=== PATIENT | female | born 1990 | race African-American/Black ===

== ENCOUNTER 2016-07-15 22:28 | Emergency (ER) | payer OTHER ==
[~2016-07-15] VITALS: Ht 154.9 cm; Wt 77.1 kg
[~2016-07-15 22:28] MED LIST: ERYTHROMYCIN E3.5 G1 OPHTHALMIC; IBUPROFEN 800800 M1 PO; LEVSIN0.125 MG PO; LORTAB 10 MG-3473 ML PO; NORCO 5-325 TA1 EACH PO; PENICILLIN VK500 M1 PO; TRINATE TABLET1 TAB PO; ZOFRAN ODT4 MG PO; ZOFRAN4 MG PO
[2016-07-15] MEDS ORDERED: PREDNISONE 20 M20 MG PO (23:00)
[2016-07-15] MEDS ORDERED: ZANTAC 150MG T150 MG PO (23:15)
[2016-07-15 23:27] VITALS: BP 129/81
[2016-08-23] MEDS ORDERED: IBUPROFEN 800800 M1 PO (13:55)
[2016-08-23] MEDS ORDERED: GENTAMICIN SU3 MG/ML OPHTHALMIC (14:08)
[2016-08-31] MEDS ORDERED: ANUSOL-HC25 MG RECTAL (11:08)
== END 2016-07-15 23:28 | disposition home or self-care (01) ==
LOC: ER 22:28
DX: L50.8 Other urticaria (principal); R12 Heartburn; F17.210 Nicotine dependence, cigarettes, uncomplicated

== ENCOUNTER 2016-07-18 20:30 | Emergency (ER) | payer OTHER ==
[~2016-07-18] VITALS: Ht 154.9 cm; Wt 77.1 kg
[~2016-07-18 20:30] MED LIST changes: +PREDNISONE 20 M20 MG PO; +ZANTAC 150MG T150 MG PO
[2016-07-18] MEDS ORDERED: HYDROXYZINE HCL25 M2 PO (22:12)
[2016-07-18] MEDS ORDERED: ADRENACLIC0.3 MG/0.3 IM (22:12)
[2016-07-18 22:14] VITALS: BP 138/73
[2016-08-23] MEDS ORDERED: IBUPROFEN 800800 M1 PO (13:55)
[2016-08-23] MEDS ORDERED: GENTAMICIN SU3 MG/ML OPHTHALMIC (14:08)
[2016-08-31] MEDS ORDERED: ANUSOL-HC25 MG RECTAL (11:08)
== END 2016-07-18 22:15 | disposition home or self-care (01) ==
LOC: ER 20:30
DX: T78.2XXA Anaphylactic shock, unspecified, initial encounter (principal); F17.210 Nicotine dependence, cigarettes, uncomplicated; F10.99 Alcohol use, unspecified with unspecified alcohol-induced disorder

== ENCOUNTER 2017-03-12 00:11 | Emergency (ER) | payer OTHER ==
[~2017-03-12] VITALS: Ht 154.9 cm; Wt 77.1 kg
[~2017-03-12 00:11] MED LIST changes: +ADRENACLIC0.3 MG/0.3 IM; +ANUSOL-HC25 MG RECTAL; +GENTAMICIN SU3 MG/ML OPHTHALMIC; +HYDROXYZINE HCL25 M2 PO
[2017-03-12 00:24] VITALS: BP 147/100
[2017-03-12] MEDS ORDERED: KEFLEX500 MG PO (01:01)
== END 2017-03-12 01:08 | disposition home or self-care (01) ==
LOC: ER 00:11
DX: O9A.211 Injury, poisoning and certain other consequences of external causes complicating pregnancy, first trimester (principal); S01.312A Laceration without foreign body of left ear, initial encounter; F10.10 Alcohol abuse, uncomplicated; F17.210 Nicotine dependence, cigarettes, uncomplicated; Z91.018 Allergy to other foods; Z3A.00 Weeks of gestation of pregnancy not specified; W19.XXXA Unspecified fall, initial encounter; Y93.89 Activity, other specified; Y92.89 Other specified places as the place of occurrence of the external cause; Y99.8 Other external cause status

== ENCOUNTER 2017-07-31 01:01 | Emergency (ER) | payer BC, OTHER ==
[~2017-07-31] VITALS: Ht 154.9 cm; Wt 72.6 kg
--- NOTE | ~2017-07-31 | EKG ---
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
[~2017-07-31 01:01] MED LIST changes: +DOCUSATE S100 MG/10 PO; +KEFLEX500 MG PO
[2017-07-31] MEDS ORDERED: DEPO-ESTRAD5 MG/1 ML IM (01:14)
[2017-07-31] MEDS ORDERED: ULTRAM 50MG TAB50 MG PO (02:33)
[2017-07-31] MEDS ORDERED: NAPROSYN500 MG PO (02:33)
[2018-03-18] MEDS ORDERED: FLONASE 0.05%50 MCG NASAL (09:57)
[2018-03-18] MEDS ORDERED: NAPROSYN500 MG PO (09:57)
[2018-03-18] MEDS ORDERED: SUDOGEST30 MG PO (09:57)
[2018-03-18] MEDS ORDERED: TESSALON PERLE100 MG PO (09:57)
[2018-03-18] MEDS ORDERED: PHENERGAN 25 MG25 M1 PO (10:07)
== END 2017-07-31 02:53 | disposition home or self-care (01) ==
LOC: ER 01:01
DX: M94.0 Chondrocostal junction syndrome [Tietze] (principal); F10.99 Alcohol use, unspecified with unspecified alcohol-induced disorder; F17.210 Nicotine dependence, cigarettes, uncomplicated

== ENCOUNTER 2017-08-26 15:49 | Emergency (ER) | payer BC, OTHER ==
[~2017-08-26] VITALS: Ht 162.6 cm; Wt 59.0 kg
[~2017-08-26 15:49] MED LIST changes: +DEPO-ESTRAD5 MG/1 ML IM; +NAPROSYN500 MG PO; +ULTRAM 50MG TAB50 MG PO
[2017-08-26] MEDS ORDERED: DEPO-PROVE150 MG/11 IM (15:56)
[2018-03-18] MEDS ORDERED: TESSALON PERLE100 MG PO (09:57)
[2018-03-18] MEDS ORDERED: SUDOGEST30 MG PO (09:57)
[2018-03-18] MEDS ORDERED: NAPROSYN500 MG PO (09:57)
[2018-03-18] MEDS ORDERED: FLONASE 0.05%50 MCG NASAL (09:57)
[2018-03-18] MEDS ORDERED: PHENERGAN 25 MG25 M1 PO (10:07)
== END 2017-08-26 16:15 | disposition home or self-care (01) ==
LOC: ER 15:49
DX: Z20.2 Contact with and (suspected) exposure to infections with a predominantly sexual mode of transmission (principal); F17.210 Nicotine dependence, cigarettes, uncomplicated

== ENCOUNTER 2017-10-07 12:49 | Emergency (ER) | payer BC, OTHER ==
[~2017-10-07] VITALS: Ht 162.6 cm; Wt 68.0 kg
[~2017-10-07 12:49] MED LIST changes: +DEPO-PROVE150 MG/11 IM
[2017-10-07 13:07] VITALS: BP 126/85
[2017-10-07 13:17] LABS: URINE BILIRUBIN NEGATIVE (Negative); URINE BLOOD NEGATIVE (Negative); URINE CLARITY CLEAR; URINE COLOR YELLOW; URINE GLUCOSE-RANDOM* NEGATIVE (Negative); URINE KETONES NEGATIVE (Negative); URINE LEUKOCYTES-REFLEX NEGATIVE (Negative); URINE NITRITE-REFLEX NEGATIVE (Negative); URINE PROTEIN (DIPSTICK) NEGATIVE (Negative); URINE SPECIFIC GRAVITY 1.025 (1.005-1.035); URINE UROBILINOGEN 0.2 E.U./dl (0.2-1.0)
== END 2017-10-07 14:00 | disposition home or self-care (01) ==
LOC: ER 12:49
PROVIDERS: Physician Assistant
DX: N72 Inflammatory disease of cervix uteri (principal); F17.210 Nicotine dependence, cigarettes, uncomplicated

== ENCOUNTER 2017-12-14 16:28 | Emergency (ER) | payer OTHER ==
[~2017-12-14] VITALS: Ht 154.9 cm; Wt 77.1 kg
[2017-12-14] MEDS ORDERED: MOBIC7.5 MG PO (17:13)
[2017-12-14 17:36] VITALS: BP 110/76
== END 2017-12-14 17:37 | disposition home or self-care (01) ==
LOC: ER 16:28
DX: S83.92XA Sprain of unspecified site of left knee, initial encounter (principal); F17.210 Nicotine dependence, cigarettes, uncomplicated; W06.XXXA Fall from bed, initial encounter; Y93.89 Activity, other specified; Y92.89 Other specified places as the place of occurrence of the external cause; Y99.8 Other external cause status

== ENCOUNTER 2018-02-19 19:06 | Emergency (ER) | payer OTHER ==
[~2018-02-19] VITALS: Ht 154.9 cm; Wt 71.2 kg
[~2018-02-19 19:06] MED LIST changes: +MOBIC7.5 MG PO
[2018-02-19] MEDS ORDERED: IBUPROFEN 400400 M2 PO (19:13)
[2018-02-19] MEDS ORDERED: HYDROCODONE-AP1 EAC6 PO (19:59)
[2018-02-19 20:13] VITALS: BP 126/82
== END 2018-02-19 20:13 | disposition home or self-care (01) ==
LOC: ER 19:06
DX: S80.02XA Contusion of left knee, initial encounter (principal); F17.210 Nicotine dependence, cigarettes, uncomplicated; W01.0XXA Fall on same level from slipping, tripping and stumbling without subsequent striking against object, initial encounter; Y93.89 Activity, other specified; Y92.89 Other specified places as the place of occurrence of the external cause; Y99.8 Other external cause status

== ENCOUNTER 2018-06-14 14:01 | Emergency (ER) | payer OTHER ==
[~2018-06-14] VITALS: Ht 154.9 cm; Wt 75.8 kg
[~2018-06-14 14:01] MED LIST changes: +FLONASE 0.05%50 MCG NASAL; +HYDROCODONE-AP1 EAC6 PO; +IBUPROFEN 400400 M2 PO; +PHENERGAN 25 MG25 M1 PO; +SUDOGEST30 MG PO; +TESSALON PERLE100 MG PO
[2018-06-14] MEDS ORDERED: TESSALON PERLE100 MG PO (15:54)
[2018-06-14] MEDS ORDERED: MUCINEX DM ER1 EACH PO (15:54)
[2018-06-14 16:06] VITALS: BP 126/89
== END 2018-06-14 16:07 | disposition home or self-care (01) ==
LOC: ER 14:01
DX: J06.9 Acute upper respiratory infection, unspecified (principal); F17.210 Nicotine dependence, cigarettes, uncomplicated

== ENCOUNTER 2018-07-26 14:55 | Emergency (ER) | payer OTHER ==
[~2018-07-26] VITALS: Ht 154.9 cm; Wt 69.0 kg
[~2018-07-26 14:55] MED LIST changes: +MUCINEX DM ER1 EACH PO
[2018-07-26] MEDS ORDERED: VENTOLIN HFA 1818 GM INH (16:48)
[2018-07-26] MEDS ORDERED: DOXYCYCLINE 10100 MG PO (16:48)
[2018-07-26] MEDS ORDERED: PREDNISONE 10 M10 MG PO (16:48)
[2018-07-26 17:05] VITALS: BP 121/74
== END 2018-07-26 17:05 | disposition home or self-care (01) ==
LOC: ER 14:55
DX: R05 Cough (principal); F17.210 Nicotine dependence, cigarettes, uncomplicated

== ENCOUNTER 2021-04-28 15:13 | Emergency (ER) | payer OTHER ==
[~2021-04-28] VITALS: Ht 154.9 cm; Wt 73.9 kg
[~2021-04-28 15:13] MED LIST changes: +DOXYCYCLINE 10100 MG PO; +PREDNISONE 10 M10 MG PO; +VENTOLIN HFA 1818 GM INH
[2021-04-28 15:46] LABS: ABSOLUTE NEUTROPHILS 2.6 thou/uL (1.4-8.2); BASOPHILS 1.1 % (0.0-2.0); EOSINOPHILS 0.5 % (0.0-3.0); HEMATOCRIT 42.4 % (37.0-47.0); LYMPHOCYTES 19.3 % (24.0-44.0); MCH 29.7 pg (26.0-34.0); MCV 90.1 fL (80.0-100.0); MONOCYTES 12.8 % (1.0-8.0); PLATELET COUNT 217 thou/uL (150-400); POLYS 66.3 % (36.0-66.0); RBC 4.71 mil/uL (4.20-5.00); RDW 13.4 % (10.5-14.5)
[2021-04-28 15:55] LABS: CALCIUM 9.4 mg/dL (8.5-10.1); CREATININE 0.9 mg/dL (0.6-1.0); POTASSIUM 3.7 mmol/L (3.5-5.1)
[2021-04-28 15:58] LABS: URINE BILIRUBIN NEGATIVE (Negative); URINE BLOOD NEGATIVE (Negative); URINE CLARITY CLEAR; URINE COLOR YELLOW; URINE GLUCOSE-RANDOM* NEGATIVE (Negative); URINE KETONES 1+ (Negative); URINE LEUKOCYTES-REFLEX NEGATIVE (Negative); URINE NITRITE-REFLEX NEGATIVE (Negative); URINE PROTEIN (DIPSTICK) NEGATIVE (Negative); URINE SPECIFIC GRAVITY 1.025 (1.005-1.035); URINE UROBILINOGEN 0.2 E.U./dl (0.2-1.0)
[2021-04-28 16:01] LABS: TOTAL BILIRUBIN 0.2 mg/dL (0.2-1.0); TOTAL PROTEIN 8.1 g/dL (6.4-8.2)
[2021-04-28 19:53] VITALS: BP 115/80
[2021-04-28 20:27] LABS: ALBUMIN 3.7 g/dL (3.4-5.0)
== END 2021-04-28 20:12 | disposition home or self-care (01) ==
LOC: ER 15:13
PROVIDERS: Emergency Medicine
DX: N83.201 Unspecified ovarian cyst, right side (principal); F17.210 Nicotine dependence, cigarettes, uncomplicated; Z79.899 Other long term (current) drug therapy

== ENCOUNTER 2021-08-26 08:43 | Emergency (ER) | payer OTHER ==
[~2021-08-26] VITALS: Ht 154.9 cm; Wt 75.8 kg
[2021-08-26 08:47] VITALS: BP 136/99
== END 2021-08-26 09:17 | disposition home or self-care (01) ==
LOC: ER 08:43
DX: J06.9 Acute upper respiratory infection, unspecified (principal)